=== PATIENT | male | born 1965 | race Caucasian/White ===

== ENCOUNTER 2020-06-26 13:34 | Inpatient (IN) ==
--- OUTSIDE RECORDS SUMMARY | 2020-06-26 13:37 | External Medical Summary | Continuity of Care Document ---
:1965 Author Name Srini Youssef, Provider Address Unavailable Unavailable , Care Team Providers Name Role Phone David Hardwick [email or web address] [place] DAVID HARDWICK M.D. Unavailable Unavailable Unavailable Unavailable Unavailable Assessments Assessed Problems:Vertigo, intermittentCerumen impaction Problems Cerumen impaction (380.4) (H61.20) Vertigo, intermittent (780.4) (R42) Allergies and Adverse Reactions No Known Drug Allergies (Allergy) Medications Multiple Vitamin TABS Refills: 0 Herbal Supplement Refills: 0 Procedures History of Cataract Surgery Status: Comp leted History of Hernia Repair Status: Complet ed Immunizations Immunizations not documented Family History Mother Family history of malignant neoplasm of breast (V16.3) (Z80. 3) Status: Active Father Family history of No known health problems (V49.89) (Z78.9) Status: Active Social History - Smoking Status Smoker Plan of Treatment Planned Observations Planned Goals not documented Results No Known Results Results not documented Encounters Appointment; David Hardwick M.D. 19-Apr-2018 13:00 Encounter Diagnosis: Problem not documented
--- OUTSIDE RECORDS SUMMARY | 2020-06-26 13:38 | External Medical Summary | Continuity of Care Document ---
:1965 Author Name Srini Youssef, Provider Address Unavailable Unavailable , Care Team Providers Name Role Phone David Hardwick [email or web address] [place] DAVID HARDWICK M.D. Unavailable Unavailable Unavailable Unavailable Unavailable Assessments Assessed Problems:Vertigo, intermittentCerumen impaction Problems Vertigo, intermittent (780.4) (R42) Cerumen impaction (380.4) (H61.20) Allergies and Adverse Reactions No Known Drug [...]
[2020-06-26] MEDS ORDERED: PANTOPRAZOLE BOLUS/DRIP 1 EA IV STA (14:01)
[2020-06-26] MEDS ORDERED: SODIUM CHLORIDE 0.9% 250 ML IV PRN ×3 (14:01→22:27)
--- NOTE | 2020-06-26 14:06 | Emergency Department Note ---
Impression & Plan SOB (shortness of breath), Weakness, Acute GI bleeding, Anemia ED Provider Note NAME: VIRY CATALAN AGE: 55 SEX: M : 1965 ARRIVES VIA: Walk-In INFORMANT: [Patient] ED PROVIDER(S): [Herb Valentine MD] CHIEF COMPLAINT: Abnormal labs HISTORY OF PRESENT ILLNESS: The patient is a 55-year-old male who is of the [facility] anamaria. The patient states that he has been weak and short of breath for about 4 weeks. Things are getting worse. He went to an outpatient clinic today and had lab work. He was told that he needed a blood transfusion. The patient denies any chest pain. There strauss been no fever, no cough or congestion. No known Covid exposures. He does not have any rash. The patient states that he has not kept track of his bowel movements, he is not sure if anything has been black or bloody. He does deny vomiting. The patient has been transfused with blood before, he states he is not sure why. REVIEW OF SYSTEMS: See HPI for pertinent positives and negatives. A total of ten systems were reviewed and were otherwise negative. PMHx/PSHx: See Below SOCIAL HISTORY: See Below. PHYSICAL EXAM: GENERAL: Patient is in no acute distress. Very thin and frail HEENT: No acute trauma, normocephalic atraumatic, mucous membranes dry, no nasal congestion, no scleral icterus. NECK: No stridor, no adenopathy, no meningismus, trachea is midline. LUNGS: Clear to auscultation bilaterally, no wheeze, no rhonchi, breath sounds equal. HEART: Mildly tachycardic, regular rhythm, no murmurs. ABDOMEN: Soft, nontender, bowel sounds positive, no hernias, no peritonitis. EXTREMITIES: No cyanosis or edema, full range of motion of all the joints with out pain or difficulty, no signs for acute trauma. NEUROLOGIC: Oriented x 3, no acute motor or sensory deficits, no focal weakness. SKIN: No rash, no jaundice, no diaphoresis. Pale. Rectal: Black stool, heme positive. DIFFERENTIAL DIAGNOSIS: Diverticulosis, AVM, coagulopathy, colitis, inflammatory bowel disease, malignancy, [place] tear, esophagitis, peptic ulcer disease, variceal bleed, gastritis, epistaxis, fissure, hemorrhoids, as well as other pathologies. EMERGENCY DEPARTMENT COURSE/PROCEDURES: ECG: Indication was weakness. The ECG shows a normal sinus rhythm with a rate of 98. There is no ST elevation, no PVCs. The QTc is 431. Continuous Cardiac Monitoring: An order was placed for continuous cardiac monitoring. The monitor shows a rate of 88 with normal sinus rhythm. Critical Care Note: I have personally spent 43 minutes of critical care time in the direct management of this patient. This includes bedside care, interpretation of diagnostic studies, and testing, discussion with consultants, patient, and family members, and other required patient management activities. This 43 minutes is in excess of all separately billable procedures. MEDICAL DECISION MAKING: There is no leukocytosis. The patient is quite anemic with a hemoglobin of 7. There is an elevation to the platelet count at 602. There is no coagulopathy. There is no significant electrolyte abnormality or kidney failure. ALT was slightly elevated, the bilirubin was normal. ECG showed a sinus rhythm, no acute ischemia. Cardiac enzyme testing x1 is not consistent with acute cardiac injury. No evidence for pancreatitis. Covid testing was negative. Chest film showed some emphysema and some potential pulmonary nodules, there was no CHF or pneumonia. On exam, the patient had black heme positive stool, he was pale and looked quite exhausted and washed out. The patient was given IV saline, 500 cc. He received an 80 mg IV Protonix bolus and was placed on a Protonix drip. He was ordered for 1 unit of packed red blood cells to be transfused. Patient did sign the proper consent for the red blood cell transfusion. I spoke to the patient about his findings, he understands the need for hospitalization. He likely has an upper GI bleed causing his anemia, weakness and fatigue. Malignancy is of course a concern as well. Further work-up is r equired. He will likely require an endoscopy. Patient is comfortable with admission, I did speak with case management, the on- call hospitalist has been consulted. Patient seems improved since being treated here in the ED. His blood pressure and pulse have improved. Past Med/Surg History Medical History Mandible fracture Social History Smoking Status: Never smoker Hx Alcohol Use: No Preferred Language: Ukrainian Allergies Allergies Allergy/AdvReac Type Severity Reaction Status Date / Time No Known Allergies Allergy Unverified 06/26/20 15:13 Home Meds Home Medications Medication Instructions Recorded Confirmed Live Enzymes Tab 1 tab PO DAILY PRN 06/26/20 06/26/20 Penicillin Tab 500 mg PO Q8 06/26/20 06/26/20 albuterol sulfate 1 puff INHALATION Q4 PRN 06/26/20 06/26/20 nystatin 5 ml PO QID 06/26/20 06/26/20 prednisone 0 mg PO .QID UD 06/26/20 06/26/20 Results & Data (ED) Vital Signs Vital Signs - 24 hr 06/26/20 13:37 06/26/20 14:17 06/26/20 15:10 Temperature 37.1 C Temperature Source Skin Pulse Rate 114 H Pulse Rate [Apical] 87 Pulse Rhythm Regular Pulse Strength Normal Respiratory Rate 20 18 Respiratory Effort / Characteristics Non-Labored Respiratory Depth Normal Respiratory Pattern Regular Blood Pressure 95/67 L Blood Pressure [Left Arm] 107/72 Blood Pressure Mean 76 Blood Pressure Mean [Left Arm] 83 Blood Pressure Position Sitting Pulse Oximetry 95 93 Oxygen Delivery Method Room Air Room Air Sepsis Recent Fever Within 48 Hours No Sepsis New/Unexplained Change in Mental Status N/A Sepsis Action Taken by Nursing No Action Required 06/26/20 16:26 Temperature 37.1 C Temperature Source Oral Pulse Rate 91 H Pulse Rate [Apical] Pulse Rhythm Pulse Strength Respiratory Rate 20 Respiratory Effort / Characteristics Respiratory Depth Respiratory Pattern Blood Pressure 106/53 L Blood Pressure [Left Arm] Blood Pressure Mean 70 Blood Pressure Mean [Left Arm] Blood Pressure Position Pulse Oximetry 98 Oxygen Delivery Method Sepsis Recent Fever Within 48 Hours Sepsis New/Unexplained Change in Mental Status Sepsis Action Taken by [facility] Medications Current Medication List: was personally reviewed by me Laboratory Data Attestation: I reviewed the patient's lab results. Result diagrams: 06/26/20 14:06 06/26/20 14:06 Lab Results 06/26/20 06/26/20 06/26/20 Range/Units 14:06 14:06 14:06 WBC 10.52 (4.8-10.8) K/uL RBC 2.17 L (4.7-6.1) M/uL Hgb 7.3 L (14.0-18.0) g/dL Hct 22.3 L (42-52) % MCV 102.8 H (80-100) fL MCH 33.6 (25-34) pg MCHC 32.7 (32-36) g/dL RDW Std Deviation 77.2 H (36.4-46.3) fL RDW Coeff of Paige 21.6 H (11.5-14.5) % Plt Count 602 H (130-400) K/uL MPV 8.9 (7.4-10.4) fL Immature Gran % (Auto) 0.8 % Neut % (Auto) 91.8 % Lymph % (Auto) 4.1 % [place] % (Auto) 3.2 % Eos % (Auto) 0.0 % Baso % (Auto) 0.1 % Neut # (Auto) 9.66 H (1.4-6.5) K/uL Lymph # (Auto) 0.43 L (1.2-3.4) K/uL [place] # (Auto) 0.34 (0.11-0.59) K/uL Eos # (Auto) 0.00 (0-0.5) K/uL Baso # (Auto) 0.01 (0-0.2) K/uL Immature Gran # (Auto) 0.08 H (0.00-0.02) K/uL Polychromasia 2+ Anisocytosis Present PT Cancelled INR Cancelled APTT Cancelled PTT Ratio Cancelled Sodium (136-145) mmol/L Potassium (3.5-5.1) mmol/L Chloride (98-107) mmol/L Carbon Dioxide (21-32) mmol/L Anion Gap (3-11) BUN (7-18) mg/dl Creatinine (0.6-1.4) mg/dl Est Cr Clr Drug Dosing ml/min Est GFR ( Amer) Est GFR (Non-Af Amer) BUN/Creatinine Ratio (10-20) Glucose (70-99) mg/dl Calcium (8.5-10.1) mg/dl Total Bilirubin (0.2-1) mg/dl AST (15-37) U/L ALT (12-78) U/L Alkaline Phosphatase (45-117) U/L Troponin I (0-0.045) ng/ml Total Protein (6.4-8.2) gm/dl Albumin (3.4-5.0) gm/dl Globulin (2.5-4.0) gm/dl Albumin/Globulin Ratio (0.9-2) Lipase (73-393) U/L SARS-CoV-2 Ag (Rapid) (Negative) Blood Type A Positive Blood Type Recheck Antibody Screen NEGATIVE Crossmatch See Detail 06/26/20 06/26/20 06/26/20 Range/Units 14:06 14:17 14:52 WBC (4.8-10.8) K/uL RBC (4.7-6.1) M/uL Hgb (14.0-18.0) g/dL Hct (42-52) % MCV (80-100) fL MCH (25-34) pg MCHC (32-36) g/dL RDW Std Deviation (36.4-46.3) fL RDW Coeff of Paige (11.5-14.5) % Plt Count (130-400) K/uL MPV (7.4-10.4) fL Immature Gran % (Auto) % Neut % (Auto) % Lymph % (Auto) % [place] % (Auto) % Eos % (Auto) % Baso % (Auto) % Neut # (Auto) (1.4-6.5) K/uL Lymph # (Auto) (1.2-3.4) K/uL [place] # (Auto) (0.11-0.59) K/uL Eos # (Auto) (0-0.5) K/uL Baso # (Auto) (0-0.2) K/uL Immature Gran # (Auto) (0.00-0.02) K/uL Polychromasia Anisocytosis PT 11.9 INR 1.1 APTT 25.2 PTT Ratio 0.9 Sodium 131 L (136-145) mmol/L Potassium 4.4 (3.5-5.1) mmol/L Chloride 97 L (98-107) mmol/L Carbon Dioxide 29 (21-32) mmol/L Anion Gap 5.0 (3-11) BUN 28 H (7-18) mg/dl Creatinine 0.47 L (0.6-1.4) mg/dl Est Cr Clr Drug Dosing 152.1 ml/min Est GFR ( Amer) 143.0 Est GFR (Non-Af Amer) 123.4 BUN/Creatinine Ratio 58.7 H (10-20) Glucose 118 H (70-99) mg/dl Calcium 8.2 L (8.5-10.1) mg/dl Total Bilirubin 0.4 (0.2-1) mg/dl AST 29 (15-37) U/L ALT 87 H (12-78) U/L Alkaline Phosphatase 84 (45-117) U/L Troponin I < 0.015 (0-0.045) ng/ml Total Protein 5.9 L (6.4-8.2) gm/dl Albumin 2.2 L (3.4-5.0) gm/dl Globulin 3.7 (2.5-4.0) gm/dl Albumin/Globulin Ratio 0.6 L (0.9-2) Lipase 267 (73-393) U/L SARS-CoV-2 Ag (Rapid) Negative (Negative) Blood Type Blood Type Recheck Antibody Screen Crossmatch 06/26/20 Range/Units 14:52 WBC (4.8-10.8) K/uL RBC (4.7-6.1) M/uL Hgb (14.0-18.0) g/dL Hct (42-52) % MCV (80-100) fL MCH (25-34) pg MCHC (32-36) g/dL RDW Std Deviation (36.4-46.3) fL RDW Coeff of Paige (11.5-14.5) % Plt Count (130-400) K/uL MPV (7.4-10.4) fL Immature Gran % (Auto) % Neut % (Auto) % Lymph % (Auto) % [place] % (Auto) % Eos % (Auto) % Baso % (Auto) % Neut # (Auto) (1.4-6.5) K/uL Lymph # (Auto) (1.2-3.4) K/uL [place] # (Auto) (0.11-0.59) K/uL Eos # (Auto) (0-0.5) K/uL Baso # (Auto) (0-0.2) K/uL Immature Gran # (Auto) (0.00-0.02) K/uL Polychromasia Anisocytosis PT INR APTT PTT Ratio Sodium (136-145) mmol/L Potassium (3.5-5.1) mmol/L Chloride (98-107) mmol/L Carbon Dioxide (21-32) mmol/L Anion Gap (3-11) BUN (7-18) mg/dl Creatinine (0.6-1.4) mg/dl Est Cr Clr Drug Dosing ml/min Est GFR ( Amer) Est GFR (Non-Af Amer) BUN/Creatinine Ratio (10-20) Glucose (70-99) mg/dl Calcium (8.5-10.1) mg/dl Total Bilirubin (0.2-1) mg/dl AST (15-37) U/L ALT (12-78) U/L Alkaline Phosphatase (45-117) U/L Troponin I (0-0.045) ng/ml Total Protein (6.4-8.2) gm/dl Albumin (3.4-5.0) gm/dl Globulin (2.5-4.0) gm/dl Albumin/Globulin Ratio (0.9-2) Lipase (73-393) U/L SARS-CoV-2 Ag (Rapid) (Negative) Blood Type Blood Type Recheck A Positive Antibody Screen Crossmatch Administered Medications Pantoprazole Sodium 40 mg/ (Dextrose) 100 mls @ 20 mls/hr IV Q5H CITLALI Stop: 07/26/20 14:29 Last Admin: 06/26/20 14:50 Dose: 8 mg/hr, 20 mls/hr Documented by: [id number] Discontinued Medications Sodium Chloride (Nss) 500 mls @ 999 mls/hr IV .Q31M CITLALI Stop: 06/26/20 14:45 Last Infusion: 06/26/20 14:45 Dose: 0 mls/hr Documented by: [id number] Admin: 06/26/20 14:14 Dose: 999 mls/hr Documented by: [id number] Pantoprazole Sodium 80 mg/ (Dextrose) 120 mls @ 480 mls/hr IV 1415 ONE Stop: 06/26/20 14:29 Last Infusion: 06/26/20 14:57 Dose: 0 mls/hr Documented by: [id number] Admin: 06/26/20 14:41 Dose: 480 mls/hr Documented by: [id number] Imaging Data Radiologist's Impression: SINGLE VIEW CHEST CLINICAL HISTORY: Dyspnea. FINDINGS: 2 AP, portable, upright chest radiographs are obtained. No prior studies are available for comparison at the time of dictation. The examination is degraded by portable technique and patient rotation. The cardiomediastinal silhouette is unremarkable. Enlargement of the central pulmonary arteries suggests pulmonary artery hypertension. Emphysematous change is noted. There is a 1.6 cm pulmonary nodule in the right midlung. Foci of scarring/atelectasis are seen at both lung bases, left greater than right. No large pleural effusion or Pneumothorax is seen. The skeletal structures are osteopenic. The bony thorax is grossly intact. IMPRESSION: 1. Emphysema. 2. A 1.6 cm nodular density is seen in the right midlung. Follow-up with a chest CT is recommended to assess for pulmonary neoplasm. 3. Scarring/atelectasis is seen at the lung bases, left greater than right. No airspace consolidation is identified typical for pneumonia. Discharge Plan Visit Data Chief Complaint: Abnormal Labs/Diagnostic Testing Stated Complaint: NEEDS BLOOD TRANSFUSION ED Provider: Herb Valentine Discharge Problem: SOB (shortness of breath), Weakness, Acute GI bleeding, Anemia Patient Disposition: Admitted As Inpatient Condition: Serious Forms Stand Alone Forms: [facility], Virtual Emergency Department, Important Visit Information Prescriptions Prescriptions: No Action nystatin 100,000 unit/mL Suspension 5 ml PO QID RF: 0 prednisone 10 mg Tablet 0 mg PO .QID UD RF: 0 albuterol sulfate 90 mcg/actuation Hfa Aerosol Inhaler 1 puff INHALATION Q4 PRN (Reason: Shortness Of Breath Or Wheezing) RF: 0 Live Enzymes Tab 1 tab PO DAILY PRN (Reason: ..) RF: 0 Penicillin Tab 500 mg PO Q8 RF: 0 Referrals Referrals: Johana Pruitt MD [Primary Care Provider] - Discharge Problem: Anemia Qualifiers: Anemia type: unspecified type Qualified Code(s): D64.9 - Anemia, unspecified
[2020-06-26] MEDS ORDERED: PANTOprazole 80 MG in DEXTROSE 5% 100 ML IV ONE (14:15)
[2020-06-26] MEDS ORDERED: SODIUM CHLORIDE 0.9% 500 ML IV SCH (14:15)
[2020-06-26 14:21] LABS: Basophils # (auto) 0.01 K/uL (0-0.2); Basophils % (auto) 0.1 %; Hematocrit (blood only) 22.3 % (42-52); Hemoglobin 7.3 g/dL (14.0-18.0); Immature Granulocytes # (auto) 0.08 K/uL (0.00-0.02); Immature Granulocytes % (auto) 0.8 %; Lymphocytes # (auto) 0.43 K/uL (1.2-3.4); Lymphocytes % (auto) 4.1 %; Mean Corpuscular Hemoglobin 33.6 pg (25-34); Mean Corpuscular Hgb Conc 32.7 g/dL (32-36); Mean Corpuscular Volume 102.8 fL (80-100); Mean Platelet Volume 8.9 fL (7.4-10.4); Monocytes # (auto) 0.34 K/uL (0.11-0.59); Monocytes % (auto) 3.2 %; Neutrophils # (auto) 9.66 K/uL (1.4-6.5); Neutrophils % (auto) 91.8 %; Platelet Count 602 K/uL (130-400); RDW Coefficient of Variation 21.6 % (11.5-14.5); RDW Standard Deviation 77.2 fL (36.4-46.3); Red Blood Count 2.17 M/uL (4.7-6.1); White Blood Count 10.52 K/uL (4.8-10.8)
[2020-06-26 14:39] LABS: Alanine Aminotransferase 87 U/L (12-78); Albumin Level 2.2 gm/dl (3.4-5.0); Anisocytosis Present; Aspartate Aminotransferase 29 U/L (15-37); BUN Creatinine Ratio 58.7 (10-20); Blood Urea Nitrogen 28 mg/dl (7-18); Calcium 8.2 mg/dl (8.5-10.1); Carbon Dioxide 29 mmol/L (21-32); Chloride 97 mmol/L (98-107); Creatinine Clr Calc Pharmacy 152.1 ml/min; Est GFR (Non-African American) 123.4; Glucose 118 mg/dl (70-99); Lipase 267 U/L (73-393); Polychromasia 2+; Potassium 4.4 mmol/L (3.5-5.1); Sodium 131 mmol/L (136-145)
[2020-06-26 14:43] LABS: Albumin Globulin Ratio 0.6 (0.9-2); Alkaline Phosphatase 84 U/L (45-117); Bilirubin,Total 0.4 mg/dl (0.2-1); Globulin 3.7 gm/dl (2.5-4.0); Total Protein 5.9 gm/dl (6.4-8.2); Troponin I < 0.015 ng/ml (0-0.045)
[2020-06-26] MEDS: PANTOprazole 40 MG in DEXTROSE 5% 100 ML IV SCH ×2 (14:50→20:01)
[2020-06-26 15:29] LABS: INR 1.1 (0.9-1.1); Partial Thromboplastin Ratio 0.9; Partial Thromboplastin Time 25.2 Seconds (21.0-31.0); Prothrombin Time 11.9 Seconds (9.0-12.0)
--- NOTE | 2020-06-26 15:42 | Electrocardiogram Report ---
Test Reason : Blood Pressure : / mmHG Vent. Rate : 098 BPM Atrial Rate : 098 BPM P-R Int : 150 ms QRS Dur : 088 ms QT Int : 338 ms P-R-T Axes : 087 084 078 degrees QTc Int : 431 ms Normal sinus rhythm Nonspecific ST abnormality No previous ECGs available Confirmed by Jaime Stock ([id number]) on 06/26/2020 3:41:34 PM Referred By: REFERRED SELF Confirmed By:Brian Stock
--- NOTE | 2020-06-26 15:50 | XRay Report ---
SINGLE VIEW CHEST CLINICAL HISTORY: Dyspnea. FINDINGS: 2 AP, portable, upright chest radiographs are obtained. No prior studies are available for comparison at the time of dictation. The examination is degraded by portable technique and patient ro tation. The cardiomediastinal silhouette is unremarkable. Enlargement of the central pulmonary arter ies suggests pulmonary artery hypertension. Emphysematous change is noted. There is a 1.6 cm pulmonar y nodule in the right midlung. Foci of scarring/atelectasis are seen at both lung bases, left greater than right. No large pleural effusion or Pneumothorax is seen. The skeletal structures are osteopeni c. The bony thorax is grossly intact. IMPRESSION: 1. Emphysema. 2. A 1.6 cm nodular density is seen in the right midlung. Follow-up with a chest CT is recommended to assess for pulmonary neoplasm. 3. Scarring/atelectasis is seen at the lung bases, left greater than right. No airspace consolidation is identified typical for pneumonia. ACT 112: Negative or not required by law. Electronically signed by: Herb Scott M.D. 06/26/2020 3:49 PM
--- NOTE | 2020-06-26 16:05 | History & Physical Report ---
Date of Service June 26, 2020 Assessment & Plan (1) Symptomatic anemia: Macrocytic anemia. In the setting of melena stool and fecal occult positivity. Tx 2 units PRBCs. Trend H/H. Check Fe studies, B12, folate. GI consult for consideration of endoscopic evaluation. (2) Melena: Given his extreme weight loss, severe protein calorie malnutrition, and severe failure to thrive the melena is concerning for GI occult malignancy. NPO. Tx 2 units PRBCs. IV PPI drip. GI consult with Dr Zapien requested for consideration of endoscopic evaluation. Check Fe studies. Serial H/H's. (3) SOB (shortness of breath): Could be multifactorial - severe anemia, occult malignancy, PE, pulmonary infection, etc. Tx 2 units PRBCs. In light of weight loss, abnormal cxr, etc - obtain CTA chest PE protocol. r/o PE. r/o tumor. r/o atypical infection. (4) Severe protein-calorie malnutrition: 40+ pounds of weight loss in 4-6 weeks? profound weight loss leading to bed-bound status. occult malignancy is top of differential. (5) Abnormal AST and ALT: CT abd/pelvis should potentially shed light on any liver abnormalities. (6) Hyponatremia: Appears volume depleted. Isotonic fluids. BMP am. (7) Pulmonary nodule 1 cm or greater in diameter: Highly concerning for primary lung cancer vs metastatic disease vs other. CT chest for more information. (8) Weight loss: Check TSH in addition CT chest/abd/pelvis and GI consultation. Await above testing. Highly concerning for occult malignancy. 40+ pounds per . (9) Encephalopathy acute: Consider head CT especially if cancerous process is found. Would need to be checked for intra-cranial mets. Check ammonia level. Low Na could contribute to mental status. (10) Thrombocytosis: 2nd Fe deficiency ? check iron studies. reactive ? other ? serial CBC. (11) DVT prophylaxis: chemical means contraindicated in setting of acute GI bleeding SCDs only extensively updated at bedside History of Present Illness Primary Care Provider: Johana Pruitt MD 55yo male with no known PMH presents with 1 month of feeling unwell. Patient's was at bedside and provided most of the history as patient was confused and could not remember most historical details. About 1 month ago the patient was seen at a local urgent care for his symptoms. At that time he had cough, fatigue, ?fever, and poor appetite. Was placed on antibiotics and steroids for presumed pneumonia. He was tested for COVID and apparently this was negative. He was also told he may have thrush and was placed on nystatin. Despite the above steroids & antibiotics he never felt better. Cough has persisted, fatigue has persisted, etc. Has lost a considerable amount of weight over the last 2 months. Amount is about 35-40 pounds. Has had severe anorexia, early satiety, extreme fatigue, and dark black stools. The latter symptom was first seen last week. The dark stools was associated with constipation which is chronic per his . No abdominal pain. Has had subjective fevers and chills. mentioned one temperature of about 100 degrees. Mr Dudley has also been confused. specifically mentions him having co nfusion last weekend. He admits to "not having his memory recently". Could not tell me the day of the week during my assessment. 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 For the last week he has essentially been in the bed. Allergies Allergy/AdvReac Type Severity Reaction Status Date / Time No Known Allergies Allergy Unverified 06/26/20 15:13 Home Medications Medication Instructions Recorded Confirmed Type Live Enzymes Tab 1 tab PO DAILY PRN 06/26/20 06/26/20 History Penicillin Tab 500 mg PO Q8 06/26/20 06/26/20 History albuterol sulfate 1 puff INHALATION Q4 PRN 06/26/20 06/26/20 History nystatin 5 ml PO QID 06/26/20 06/26/20 History prednisone 0 mg PO .QID UD 06/26/20 06/26/20 History Past Med/Surg History Medical History Mandible fracture Surgical History (Updated 06/27/20 @ 05:03 by Alex Alvarado) No history of previous surgery Family History (Updated 06/27/20 @ 05:04 by Alex Alvarado) Mother Breast cancer Denies family history of Colorectal cancer Social History (Updated 06/27/20 @ 05:08 by Alex Alvarado) Smoking Status: Never smoker Cigarettes Per Day: Pt denied smoking to me, but told ER physician he smoked daily; Hx Alcohol Use: No Hx Substance Use: No Preferred Language: Armenian Communication Ability: Effective Safety Associate Required: No Beliefs That Will Affect Care: None and Cultural marital status: Current Living Situation: Family Current Living Situation Comment: Yobany with /children current occupation: [employer] How many Children do You have: 10 Assistive Devices: None Review of Systems Constitutional: + fever, + chills, + fatigue, + weakness, + anorexia and + weight loss (40 pounds); no body aches Eyes: no worsening vision Ear, Nose, Mouth, Throat: + mouth lesions and + sore throat; no nasal congestion Respiratory: + cough and + dyspnea on exertion Cardiovascular: no chest pain and no edema Gastrointestinal: + early satiety, + constipation and + melena; no abdominal pain, no nausea and no vomiting Genitourinary: no dysuria Musculoskeletal: no body aches Integumentary: no rash Neurologic: + generalized weakness Psychiatric: no depression Endocrine: no prior h/o DM Hematologic / Lymphatic: + easy bruising; no lymphadenopathy and no night sweats Physical Exam Constitutional: + ill appearing, + cachectic, + altered mental status and + frail appearing very pale Eyes: + anicteric sclerae and PERRL ENMT: Mouth: + oral mucosal abnormality (Ulceration posterior palate ), + dry oral mucous membranes and + poor dentition Neck: trachea midline, no thyromegaly Respiratory: no respiratory distress Auscultation: + crackles (Scattered bases ) Cardiovascular: Rate/Rhythm: regular rate and regular rhythm Heart Sounds: normal S1 and normal S2; no murmur Vessels: posterior tibial pulses present and dorsalis pedis pulses present; no JVD Extremities: no edema Gastrointestinal (Abdomen): normal bowel sounds, soft, nontender, no hepatosplenomegaly rectal - performed by ER physician -- gross melena, heme+ stool, no mass Musculoskeletal: Extremities: + clubbing Skin: no rashes, warm and dry + pallor; no rashes Neurologic: deep tendon reflexes 2+ bilaterally, moves all extremities and + confused Psychiatric: Orientation: oriented to person and oriented to place; + not oriented to time Lymphatic: no cervical lymphadenopathy and no subclavicular lymphadenopathy Results & Data Results & Data ([facility]) Vital Signs (Past 12 Hours) Vital Signs Temp Pulse Pulse Resp BP BP Pulse Ox 06/26/20 15:10 87 18 107/72 06/26/20 14:17 93 06/26/20 13:37 37.1 C 114 H 20 95/67 L 95 Laboratory Results Laboratory Results - last 24 hr 06/26/20 06/26/20 06/26/20 14:06 14:06 14:06 WBC 10.52 RBC 2.17 L Hgb 7.3 L Hct 22.3 L MCV 102.8 H MCH 33.6 MCHC 32.7 RDW Std Deviation 77.2 H RDW Coeff of Paige 21.6 H Plt Count 602 H MPV 8.9 Immature Gran % (Auto) 0.8 Neut % (Auto) 91.8 Lymph % (Auto) 4.1 Crawford % (Auto) 3.2 Eos % (Auto) 0.0 Baso % (Auto) 0.1 Neut # (Auto) 9.66 H Lymph # (Auto) 0.43 L Crawford # (Auto) 0.34 Eos # (Auto) 0.00 Baso # (Auto) 0.01 Immature Gran # (Auto) 0.08 H Polychromasia 2+ Anisocytosis Present PT Cancelled INR Cancelled APTT Cancelled PTT Ratio Cancelled Sodium Potassium Chloride Carbon Dioxide Anion Gap BUN Creatinine Est Cr Clr Drug Dosing Est GFR ( Amer) Est GFR (Non-Af Amer) BUN/Creatinine Ratio Glucose Calcium Iron Transferrin Transferrin % Sat Ferritin Total Bilirubin AST ALT Alkaline Phosphatase Ammonia Troponin I Total Protein Albumin Globulin Albumin/Globulin Ratio Lipase Vitamin B12 Folate Nasal Screen MRSA (PCR) SARS-CoV-2 Ag (Rapid) Blood Type A Positive Blood Type Recheck Antibody Screen NEGATIVE Crossmatch See Detail 06/26/20 06/26/20 06/26/20 14:06 14:06 14:17 WBC RBC Hgb Hct MCV MCH MCHC RDW Std Deviation RDW Coeff of Paige Plt Count MPV Immature Gran % (Auto) Neut % (Auto) Lymph % (Auto) Crawford % (Auto) Eos % (Auto) Baso % (Auto) Neut # (Auto) Lymph # (Auto) Crawford # (Auto) Eos # (Auto) Baso # (Auto) Immature Gran # (Auto) Polychromasia Anisocytosis PT INR APTT PTT Ratio Sodium 131 L Potassium 4.4 Chloride 97 L Carbon Dioxide 29 Anion Gap 5.0 BUN 28 H Creatinine 0.47 L Est Cr Clr Drug Dosing 152.1 Est GFR ( Amer) 143.0 Est GFR (Non-Af Amer) 123.4 BUN/Creatinine Ratio 58.7 H Glucose 118 H Calcium 8.2 L Iron 54 Transferrin 167 L Transferrin % Sat 23 Ferritin 703.0 H Total Bilirubin 0.4 AST 29 ALT 87 H Alkaline Phosphatase 84 Ammonia Troponin I < 0.015 Total Protein 5.9 L Albumin 2.2 L Globulin 3.7 Albumin/Globulin Ratio 0.6 L Lipase 267 Vitamin B12 Folate Nasal Screen MRSA (PCR) SARS-CoV-2 Ag (Rapid) Negative Blood Type Blood Type Recheck Antibody Screen Crossmatch 06/26/20 06/26/20 06/26/20 14:52 14:52 18:29 WBC RBC Hgb Hct MCV MCH MCHC RDW Std Deviation RDW Coeff of Paige Plt Count MPV Immature Gran % (Auto) Neut % (Auto) Lymph % (Auto) Crawford % (Auto) Eos % (Auto) Baso % (Auto) Neut # (Auto) Lymph # (Auto) Crawford # (Auto) Eos # (Auto) Baso # (Auto) Immature Gran # (Auto) Polychromasia Anisocytosis PT 11.9 INR 1.1 APTT 25.2 PTT Ratio 0.9 Sodium Potassium Chloride Carbon Dioxide Anion Gap BUN Creatinine Est Cr Clr Drug Dosing Est GFR ( Amer) Est GFR (Non-Af Amer) BUN/Creatinine Ratio Glucose Calcium Iron Transferrin Transferrin % Sat Ferritin Total Bilirubin AST ALT Alkaline Phosphatase Ammonia Troponin I Total Protein Albumin Globulin Albumin/Globulin Ratio Lipase Vitamin B12 Folate Nasal Screen MRSA (PCR) Negative SARS-CoV-2 Ag (Rapid) Blood Type Blood Type Recheck A Positive Antibody Screen Crossmatch 06/26/20 06/26/20 06/26/20 21:44 21:44 21:44 WBC RBC Hgb 7.9 L Hct MCV MCH MCHC RDW Std Deviation RDW Coeff of Paige Plt Count MPV Immature Gran % (Auto) Neut % (Auto) Lymph % (Auto) Crawford % (Auto) Eos % (Auto) Baso % (Auto) Neut # (Auto) Lymph # (Auto) Crawford # (Auto) Eos # (Auto) Baso # (Auto) Immature Gran # (Auto) Polychromasia Anisocytosis PT INR APTT PTT Ratio Sodium Potassium Chloride Carbon Dioxide Anion Gap BUN Creatinine Est Cr Clr Drug Dosing Est GFR ( Amer) Est GFR (Non-Af Amer) BUN/Creatinine Ratio Glucose Calcium Iron Transferrin Transferrin % Sat Ferritin Total Bilirubin AST ALT Alkaline Phosphatase Ammonia 26.4 Troponin I Total Protein Albumin Globulin Albumin/Globulin Ratio Lipase Vitamin B12 > 2000 H Folate 12.60 Nasal Screen MRSA (PCR) SARS-CoV-2 Ag (Rapid) Blood Type Blood Type Recheck Antibody Screen Crossmatch Diagnostic Findings 1. chest x-ray: IMPRESSION: 1. Emphysema. 2. A 1.6 cm nodular density is seen in the right midlung. Follow-up with a chest CT is recommended to assess for pulmonary neoplasm. 3. Scarring/atelectasis is seen at the lung bases, left greater than right. No airspace consolidation is identified typical for pneumonia. 2. EKG - my read: NSR, no ST changes Code Status & VTE Plan Code Status DNR/DNI - discussed code status in presence of his ("when it's my time to go it's time to go") VTE Prophylaxis Plan VTE Prophylaxis will be ordered: Yes PG Care Time/CCT Total # of Minutes Spent Total Time Spent with Patient: Total time spent is greater than 50% in coord ination of care (as documented) at patient's floor/unit and/or counseling patient: Coding Level of Care Code 64477 Initial Inpt Care Lvl 2 Diagnoses Symptomatic anemia D64.9 Melena K92.1 SOB (shortness of breath) R06.02 Severe protein-calorie malnutrition E43 Abnormal AST and ALT R74.8 Hyponatremia E87.1 Pulmonary nodule 1 cm or greater in diameter R91.1 Weight loss R63.4 Encephalopathy acute G93.40 Thrombocytosis D47.3 DVT prophylaxis Z29.9
[2020-06-26] MEDS ORDERED: ONDANSETRON INJ 2 MG/ML 2 ML VIAL IV PRN (18:10)
[2020-06-26] MEDS: D5NSS + 20MEQ KCL 20 MEQ/1,000 ML BAG IV SCH (21:07)
[2020-06-26] MEDS: NYSTATIN SUSP 500,000 U/5 ML UDC PO SCH ×2 (21:07→21:08)
[2020-06-26 22:41] LABS: Vitamin B12 > 2000 pg/ml (193-986)
[2020-06-27] MEDS: PANTOprazole 40 MG in DEXTROSE 5% 100 ML IV SCH ×5 (00:59→20:44)
[2020-06-27 06:02] LABS: Hematocrit (blood only) 26.9 % (42-52); Hemoglobin 8.9 g/dL (14.0-18.0); Mean Corpuscular Hemoglobin 32.5 pg (25-34); Mean Corpuscular Hgb Conc 33.1 g/dL (32-36); Mean Corpuscular Volume 98.2 fL (80-100); Mean Platelet Volume 9.2 fL (7.4-10.4); Platelet Count 471 K/uL (130-400); RDW Coefficient of Variation 20.6 % (11.5-14.5); Red Blood Count 2.74 M/uL (4.7-6.1); White Blood Count 10.07 K/uL (4.8-10.8)
[2020-06-27 06:25] LABS: BUN Creatinine Ratio 56.4 (10-20); Calcium 7.3 mg/dl (8.5-10.1); Creatinine Clr Calc Pharmacy 170.2 ml/min; Est GFR (African American) 149.8; Est GFR (Non-African American) 129.2; Potassium 4.1 mmol/L (3.5-5.1)
[2020-06-27 06:36] LABS: Thyroid Stimulating Hormone 2.4 uIu/ml (0.300-4.500)
[2020-06-27] MEDS: NYSTATIN SUSP 500,000 U/5 ML UDC PO SCH ×4 (08:26→20:44)
[2020-06-27] MEDS: D5NSS + 20MEQ KCL 20 MEQ/1,000 ML BAG IV SCH ×2 (08:27→20:44)
[2020-06-27] MEDS ORDERED: OPTIRAY 320 125ml IV ONE (09:04)
--- NOTE | 2020-06-27 09:50 | CT Scan Report ---
CT abd pelvis IV con only CLINICAL HISTORY: 40# weight loss, early satiety; intra-abd path? COMPARISON STUDY: None. TECHNIQUE: Patient was scanned in a dynamic helical fashion during intravenous administration of 119 cc of Optiray 320 A dose lowering technique was utilized adhering to the principles of ALARA. CT DOSE: 567.72 mGy.cm FINDINGS: Lower chest: There is lower lobe bronchial wall thickening and mucous plugging. There are peripheral airspace opacities within the lingula and right middle lobe. Liver: The contrast-enhanced liver is normal in size, contour, and attenuation. There is no intrahepa tic biliary ductal dilatation. The hepatic veins and portal veins are patent. Gallbladder: Unremarkable. Spleen: Normal in size and attenuation. Pancreas: Unremarkable. Adrenal glands: Unremarkable. Kidneys: Subcentimeter renal hypodensities, likely represent cysts Bowel: There are no transition zones to indicate bowel obstruction. There is no evidence of acute div erticulitis. There is moderate stool within the rectum. There is no evidence of acute diverticulitis. Bowel evaluation is limited given the lack of orally administered contrast, and the paucity of intra -abdominal fat Peritoneum: There is no intraperitoneal free air or abdominal ascites. Vasculature: The abdominal aorta is normal in course and caliber. Adenopathy: None. Pelvic viscera: The bladder, and pelvic viscera are unremarkable. Skeletal structures: There is a grade 1-2/4 spondylolisthesis of L5 on S1. There is bilateral L5 spon dylolysis. There is discogenic and plate sclerosis at the L1-2 level. IMPRESSION: 1. No evidence of bowel obstruction. No evidence of free air 2. No acute inflammatory changes within the abdomen or pelvis. 3. Bilateral lower lobe bronchial wall thickening and mucous plugging. Peripheral airspace opacities within the lingula and right middle lobe. Bilateral dependent lower lobe opacities ACT 112: Negative or not required by law. Electronically signed by: Minh العلي M.D. 06/27/2020 9:48 AM
--- NOTE | 2020-06-27 10:22 | Gastrointestinal Consultation ---
Date of Consultation June 27, 2020 Assessment & Plan (1) Weight loss: (2) Anemia: -Clear liquids today -Keep NPO after midnight -Bowel prep ordered for colonoscopy & EGD to be performed on 06/28/2020 -Continue to monitor H/H & monitor for clinical signs and symptoms of GI bleeding -Continue Protonix 40 mg BID Present on Admission?: Yes Supervising Physician Co-Signing Physician Notes Agree with AUDI Mcdonnell Abd: Soft, NT, ND, +BS Continue supportive care Bowel prep tonight, clear liquid diet until completion of bowel prep Proceed with EGD and colonoscopy in AM History of Present Illness Reason for Consultation: Weight loss, anemia Attending Physician: Filiberto Turner History of Present Illness Patient is a 55 yo male who presents to the hospital with weakness and 40 lb subjective weight loss. He is accompanied by his . She reports that he has had constipation lately and has not been able to move his bowels for 7 days prior to hospitalization. They note he has had progressive weight loss over recent months. He denies any abdominal pain at present. An abdominal CT was performed in the ED without contrast and does not show any grossly remarkable lesions or masses. The patient's current H/H is 8.9/26.9. Baseline unknown. No NSAID use is reported. Patient feels weak and tired. No known family history of GI issues. Allergies Allergy/AdvReac Type Severity Reaction Status Date / Time No Known Allergies Allergy Unverified 06/26/20 15:13 Home Medications Medication Instructions Recorded Confirmed Type Live Enzymes Tab 1 tab PO DAILY PRN 06/26/20 06/26/20 History Penicillin Tab 500 mg PO Q8 06/26/20 06/26/20 History albuterol sulfate 1 puff INHALATION Q4 PRN 06/26/20 06/26/20 History nystatin 5 ml PO QID 06/26/20 06/26/20 History prednisone 0 mg PO .QID UD 06/26/20 06/26/20 History Patient History Medical History Mandible fracture Surgical History (Updated 06/27/20 @ 05:03 by Alex Alvarado) No history of previous surgery Family History (Updated 06/27/20 @ 05:04 by Alex Alvarado) Mother Breast cancer Denies family history of Colorectal cancer Social History (Updated 06/27/20 @ 05:08 by Alex Alvarado) Smoking Status: Never smoker Cigarettes Per Day: Pt denied smoking to me, but told ER physician he smoked daily; Hx Alcohol Use: No Hx Substance Use: No Preferred Language: Faroese Communication Ability: Effective Automotive Buyer Required: No Beliefs That Will Affect Care: None and Cultural marital status: Current Living Situation: Family Current Living Situation Comment: Yobany with /children current occupation: [employer] How many Children do You have: 10 Assistive Devices: None Review of Systems Constitutional: + weight loss Eyes: no problem reported Ear, Nose, Mouth, Throat: no problem reported Respiratory: + dyspnea on exertion Cardiovascular: no chest pain Gastrointestinal: + change in bowel habits and + constipation; no abdominal pain, no heartburn, no vomiting, no coffee ground emesis and no hematemesis Musculoskeletal: no problem reported Integumentary: no rash Psychiatric: no problem reported Hematologic / Lymphatic: + unexplained weight loss Physical Exam Constitutional: well developed and well nourished Eyes: no conjunctival abnormality ENMT: Ears: no hearing impairment Neck: normal visual inspection Respiratory: normal respiratory effort Cardiovascular: Extremities: no edema Gastrointestinal (Abdomen): normal bowel sounds, soft, nontender, no hepatosplenomegaly Musculoskeletal: Head/Neck/Chest: normocephalic Skin: no rashes Psychiatric: A+Ox3, euthymic affect Results & Data ([facility]) Vital Signs (Past 12 Hours) Vital Signs Temp Pulse Pulse Resp BP BP Pulse Ox 06/27/20 08:09 36.8 C 82 18 114/71 95 06/27/20 01:00 92 H 15 91 06/27/20 00:45 77 18 93 06/27/20 00:30 73 15 94 06/27/20 00:15 75 17 91 06/27/20 00:07 78 17 110/65 94 06/27/20 00:01 77 17 93 06/26/20 23:58 81 14 106/65 94 06/26/20 23:40 37.0 C 75 18 106/65 93 PG Care Time/CCT Total # of Minutes Spent Total Time Spent with Patient: Total time spent is greater than 50% in coordination of care (as documented) at patient's floor/unit and/or counseling patient: Coding Level of Care Code 58705 Office/OBS Consult Lvl 4 Diagnoses Weight loss R63.4 Anemia D64.9 Anemia type: unspecified type (1) Anemia Anemia type: unspecified type Qualified Code(s): D64.9 - Anemia, unspecified
--- NOTE | 2020-06-27 11:06 | CT Scan Report ---
CT angio chest PE protocol HISTORY: 55 years-old Male with Cough, dyspnea, pulm nodule; eval nodule; eval PE. Acute cough. TECHNIQUE: Multiple CTA images of the chest were obtained after the intravenous administration of 119 ml Optiray 320. Coronal and sagittal MIPS were obtained from the axial data set and were submitted for review. All measurements were obtained according to NASCET criteria. A dose lowering technique w as utilized adhering to the principles of ALARA. COMPARISON: CT abdomen and pelvis of same day FINDINGS: CTA: Heart is upper limits of normal in size. Mild to moderate coronary artery calcifications. No thoracic aortic aneurysm or dissection. There is patency of the imaged great vessels. The subsegmental branch es of the pulmonary arterial tree is suboptimally evaluated secondary to contrast bolus timing. There are several small subsegmental filling defects within the pulmonary arteries at the level of the dep endent lower lobes (for example see image 58 series 4, image 40 series 4 and image 52 series 4). No e vidence of right heart strain. CT CHEST: Unremarkable thyroid. Scattered calcified mediastinal and hilar lymph nodes compatible with prior gra nulomatous disease. Mildly enlarged right hilar lymph node measures up to 11 mm. Bibasilar groundglas s and consolidative opacities are most pronounced dependently. Subpleural groundglass opacities are a lso noted within the mid and lower lung zones. Bibasilar mucous plugging with bronchial wall thickeni ng. Moderate emphysema. 1.7 x 1.4 x 1.6 cm irregular spiculated nodule of the right upper lobe, image 173 series 4. 9 mm irregular nodule of the right upper lobe adjacent to the major fissure on image 1 13 series 4. 0.7 cm subpleural consolidative opacity of the left upper lobe on image 256 series 4. 5 mm solid nodule of the lingula, image 153 series 4. Nodular consolidative opacities of the lingula ar e noted including a 1.3 cm density on image 78 series 4. No acute process of the imaged upper abdomen. Soft tissues are unremarkable. Bones appear intact. No acute fracture or suspicious bone lesion. IMPRESSION: 1. Several small subsegmental pulmonary emboli within the bilateral lower lobes as above. 2. Moderate emphysema with bronchitis and bibasilar predominant mucus plugging. 3. Patchy bibasilar predominate groundglass and alveolar opacities are suggestive of a multifocal pne umonia. Follow-up imaging to document resolution is recommended. 4. There are two suspicious irregular pulmonary nodules of the right upper lobe measuring up to 1.7 c m. Follow-up is needed to exclude pulmonary malignancy. 5. Nonspecific mild right hilar adenopathy. Please refer to below summary of Fleischner criteria recommendations for follow-up of incidental CT n odules (Franchesca Avelar, Guidelines for management of small pulmonary nodules detected on CT scans: A sta tement from the Fleischner Society, Radiology 237: [phone].) SOLID NODULES Multiple nodules size: <6 mm * Low risk patients: no routine follow-up * high risk patients: optional CT at 12 months Multiple nodules size: 6-8 mm * Low risk patients: follow-up at 3-6 months, then consider further follow-up at 18-24 months * high risk patients: follow-up at 3-6 months, then at 18-24 months if no change Multiple nodules size: >8 mm * Low risk patients: follow-up at 3-6 months, then consider further follow-up at 18-24 months * high risk patients: follow-up at 3-6 months, then at 18-24 months if no change Note: newly detected indeterminate nodule in persons 35 years of age or older. * Low risk patients: minimal or absent history of smoking and/or other known risk factors * high risk patients: history of smoking or of other known risk factors (e.g. first degree relative with lung cancer, or exposure to asbestos, radon, uranium) * if a nodule up to 8 mm is partly solid or is ground glass further follow-up is required after 24 m onths to exclude possible slow growing adenocarcinoma (JOSEFA) ACT 112: Negative or not required by law. The above report was generated using voice recognition software. It may contain grammatical, syntax o r spelling errors. Electronically signed by: Alejandro Bey M.D. 06/27/2020 11:04 AM
--- NOTE | 2020-06-27 11:17 | Hospitalist Progress Note ---
Date of Service June 27, 2020 Assessment & Plan (1) Symptomatic anemia: Macrocytic anemia. In the setting of melena stool and fecal occult positivity. Tx 2 units PRBCs. Hemoglobin has improved from 7.3 to 8.9 vital signs have been stable. will continue to monitor patient. Patient will have planned colonscopy and endoscopy on 06/28 Appreciate input from GI. (2) Melena: Given his extreme weight loss, severe protein calorie malnutrition, and s evere failure to thrive the melena is concerning for GI occult malignancy. As stated above. (3) SOB (shortness of breath): Could be multifactorial - severe anemia, occult malignancy, PE, pulmonary infection, etc. Tx 2 units PRBCs. In light of weight loss, abnormal cxr, etc - obtain CTA chest PE protocol. CTA chest showing pulmonary emboli. Given anemia and recent episode of gi bleed. Anticoagulation will be held especially given how patient is possibly asymptomatic. His symptoms of shortness of breath could be explained by his anemia. Currently his vitals are stable. Patient also has a lung nodule on CTA chest. will consult pulmonary. (4) Severe protein-calorie malnutrition: 40+ pounds of weight loss in 4-6 weeks? profound weight loss leading to bed-bound status. occult malignancy is top of differential. (5) Abnormal AST and ALT: CT abd/pelvis should potentially shed light on any liver abnormalities. (6) Hyponatremia: Appears volume depleted. Isotonic fluids. sodium improved. (7) Pulmonary nodule 1 cm or greater in diameter: Highly concerning for primary lung cancer vs metastatic disease vs other. As above. (8) Weight loss: Check TSH in addition CT chest/abd/pelvis and GI consultation. Await above testing. Highly concerning for occult malignancy. 40+ pounds per . (9) Encephalopathy acute: Consider head CT especially if cancerous process is found. Would need to be checked for intra-cranial mets. Check ammonia level. Low Na could contribute to mental status. (10) Thrombocytosis: 2nd Fe deficiency ? check iron studies. reactive ? other ? serial CBC. (11) DVT prophylaxis: chemical means contraindicated in setting of acute GI bleeding SCDs only (12) Pulmonary emboli: This is a difficult situation as patient has likely malignancy evidence of pulmonary emboli but recent GI bleed. Given that patient is currently stable on room air, and not tachycardic will consult pulmonary for further input. Admission and Anticipated Discharge Date Admission Date: June 26, 2020 Subjective Patient reports feeling well. Patient has no new symptoms today. He reports he is waiting for the endoscopy to be done tomorrow. Review of Systems Review of Systems: All systems reviewed & are unremarkable except as noted in HPI & below Physical Exam Physical Exam: Constitutional: Lying in bed, comfortable, in no acute distress Eyes: PERRL ENMT: Mouth: + oral mucosal abnormality (Ulceration posterior palate ), + poor dentition Neck: trachea midline, no thyromegaly Respiratory: no respiratory distress Auscultation: CTA B/L Cardiovascular: Rate/Rhythm: regular rate and regular rhythm Heart Sounds: normal S1 and normal S2; no murmur Vessels: posterior tibial pulses present and dorsalis pedis pulses present; no JVD Extremities: no edema Gastrointestinal (Abdomen): normal bowel sounds, soft, nontender, no hepatosplenomegaly Musculoskeletal: Extremities: + clubbing Skin: no rashes, warm and dry + pallor; no rashes Neurologic: deep tendon reflexes 2+ bilaterally, moves all extremities and + confused Psychiatric: Orientation: oriented to person and oriented to place; + not oriented to time Lymphatic: no cervical lymphadenopathy and no subclavicular lymphadenopathy Results & Data Results & Data ([facility]) Vital Signs (Past 12 Hours) Vital Signs Temp Pulse Pulse Resp BP BP Pulse Ox 06/27/20 08:09 36.8 C 82 18 114/71 95 06/27/20 01:00 92 H 15 91 06/27/20 00:45 77 18 93 06/27/20 00:30 73 15 94 06/27/20 00:15 75 17 91 06/27/20 00:07 78 17 110/65 94 06/27/20 00:01 77 17 93 06/26/20 23:58 81 14 106/65 94 06/26/20 23:40 37.0 C 75 18 106/65 93 PG Care Time/CCT Total # of Minutes Spent Total Time Spent with Patient: Total time spent is greater than 50% in coordination of care (as documented) at patient's floor/unit and/or counseling patient: Coding Level of Care Code 27349 Subseq Hosp Care Lvl 3 Diagnoses Symptomatic anemia D64.9 Melena K92.1 SOB (shortness of breath) R06.02 Severe protein-calorie malnutrition E43 Abnormal AST and ALT R74.8 Hyponatremia E87.1 Pulmonary nodule 1 cm or greater in diameter R91.1 Weight loss R63.4 Encephalopathy acute G93.40 Thrombocytosis D47.3 DVT prophylaxis Z29.9 Pulmonary emboli I26.99
[2020-06-27] MEDS: LAVAGE SOLUTION 4000ML PO SCH (18:08)
[2020-06-27 23:06] LABS: Hematocrit (blood only) 28.1 % (42-52); Hemoglobin 9.3 g/dL (14.0-18.0)
[2020-06-28] MEDS: PANTOprazole 40 MG in DEXTROSE 5% 100 ML IV SCH ×3 (02:24→12:23)
[2020-06-28] MEDS: LAVAGE SOLUTION 4000ML PO SCH (03:18)
[2020-06-28 05:39] LABS: Basophils # (auto) 0.01 K/uL (0-0.2); Basophils % (auto) 0.1 %; Eosinophils # (auto) 0.07 K/uL (0-0.5); Eosinophils % (auto) 0.5 %; Hematocrit (blood only) 31.7 % (42-52); Hemoglobin 10.4 g/dL (14.0-18.0); Immature Granulocytes # (auto) 0.05 K/uL (0.00-0.02); Immature Granulocytes % (auto) 0.3 %; Lymphocytes # (auto) 0.99 K/uL (1.2-3.4); Lymphocytes % (auto) 6.9 %; Mean Corpuscular Hemoglobin 32.3 pg (25-34); Mean Corpuscular Hgb Conc 32.8 g/dL (32-36); Mean Corpuscular Volume 98.4 fL (80-100); Mean Platelet Volume 8.9 fL (7.4-10.4); Monocytes # (auto) 0.48 K/uL (0.11-0.59); Monocytes % (auto) 3.4 %; Neutrophils # (auto) 12.72 K/uL (1.4-6.5); Neutrophils % (auto) 88.8 %; Platelet Count 415 K/uL (130-400); RDW Coefficient of Variation 20.1 % (11.5-14.5); RDW Standard Deviation 70.7 fL (36.4-46.3); Red Blood Count 3.22 M/uL (4.7-6.1); White Blood Count 14.32 K/uL (4.8-10.8)
[2020-06-28 06:04] LABS: Albumin Globulin Ratio 0.6 (0.9-2); Albumin Level 2.1 gm/dl (3.4-5.0); Anisocytosis Present; BUN Creatinine Ratio 41.3 (10-20); Bilirubin,Total 0.7 mg/dl (0.2-1); Calcium 7.6 mg/dl (8.5-10.1); Creatinine Clr Calc Pharmacy 159.2 ml/min; Echinocytes 1+; Est GFR (African American) 148.3; Globulin 3.5 gm/dl (2.5-4.0); Potassium 3.8 mmol/L (3.5-5.1); Total Protein 5.6 gm/dl (6.4-8.2)
[2020-06-28] MEDS: NYSTATIN SUSP 500,000 U/5 ML UDC PO SCH ×4 (08:36→22:04)
[2020-06-28] MEDS: D5NSS + 20MEQ KCL 20 MEQ/1,000 ML BAG IV SCH ×2 (08:36→22:03)
--- NOTE | 2020-06-28 09:52 | History & Physical Bridge Note ---
Date of Service June 28, 2020 History & Physical Bridge Note I have examined the patient, reviewed the History & Physical and in the interval since the performance of the History & Physical I have noted the following changes of clinical significance: no changes noted Patient has completed the bowel prep. Of note, since my visit on 06/27/30, his CT resulted indicating bilateral pulmonary emboli. Patient appears in no acute respiratory distress at present. Will have anesthesia eval prior to EGD/colonoscopy. Supervising Physician Co-Signing Physician Notes Agree with AUDI Torres Abd: Soft, NT, ND, +BS Continue current therapy and supportive care Proceed with EGD and colonoscopy now.
--- NOTE | 2020-06-28 10:57 | Pulmonary Consultation ---
Date of Consultation June 28, 2020 Assessment & Plan (1) Pulmonary nodule 1 cm or greater in diameter: 55 yo M admitted for symptomatic anemia secondary to likely GIB. Pulm consult placed for presence of lung nodules and pulmonary emboli. 1) Pulmonary Nodules concerning for malignancy - extensive smoking history - 1.7 x 14 x1.6 cm irregular spiculated nodule of right upper lobe, 9 mm irregular nodule of right upper lobe adjacent to major fissure, 5 mm solid nodule of the lingula - Enlarged hilar lymph node up to 11 mm. - possible small cell lung cancer given recent hyponatremia, less likely given improvement in sodium with fluids 2) Pulmonary Emboli - multiple small subsegmental pulmonary emboli in bilateral lower lobes - no hx DVT/PE - underlying cancer would increase risk of being hypercoaguable - will hold off on anticoagulation until EGD/Colonoscopy to limit chance of w orsened bleeding - noted thrombocytosis of 602, macrocytic anemia with MCV of 102, hg 7.3 on admission 3) Mucus plugging vs. multifocal pneumonia? - noted on CTA chest - afebrile, no increased O2 requirement - WBC increased to 14.32 from 10.07 - will continue to monitor symptoms, more likely mucus plugging causing decreased flow to the opacified sections (2) Severe protein-calorie malnutrition: (3) Pulmonary emboli: (4) Acute GI bleeding: (5) Anemia: Anemia type: unspecified type Qualified Code(s): D64.9 - Anemia, unspecified Supervising Physician Co-Signing Physician Notes Dr. Walton was the resident-physician during care of patient. I separately evaluated patient for caballero portions of the history and the exam. I was present during the critical portion of medical decision making, and I discussed the case with the resident. I generally agree with the findings and plan except for any additions/exceptions noted. Patient with right upper lobe lung nodule concerning for possible malignancy. He has an extensive smoking history. He underwent an EGD and colonoscopy today. Very significant erosive gastritis was seen per the silver miner blasting. Will await biopsy results from the EGD. He will need a PET scan as an outpatient given his weight loss, smoking history and size of lung nodules. Based on the PET scan results and the biopsy results from the EGD, we will decide upon the next best step in terms of evaluating the right upper lobe lung lesions. I strongly recommend complete smoking cessation. Pulmonary function testing as an outpatient would be beneficial. With regards to anticoagulation, he is at high risk for recurrent PE especially in light of his potential malignancy. Recommend starting anticoagulation based on gastroenterology recommendations. Pulmonary will sign off at this time. Please call with questions. History of Present Illness Attending Physician: Gilberto Lopez MD History of Present Illness 55 yo M admitted to the hospital for acute symptomatic anemia, weight loss >40lbs in 3 weeks and confusion. Reports a recent history of requiring oxygen at home, up to 6L of O2 by [place]. Patient's is unsure why specifically was on oxygen other than having increased trouble breathing. Prior to 3 weeks ago he was in full strength, able to work throughout the day without issue. For the past 3 weeks he has had no appetite, progressively lost weight, and had shortness of breath with exercise and at rest, and generalized fatigue. He attests to having a cough but denies any sputum production, and denies hemoptysis. Denies fevers, chills or night sweats but does note that instead of feeling chilly like usual, he required more fans and cooling due to feeling warmer than usual. Extensive smoking history; rolls his own cigarettes multiple times a day and smokes ~1 pack per day since he was 14. (40 pack years). Occasionally used chewing tobacco, minimal cigar use. Denies history of exposure to machinery, coal, sandblasting, exotic birds. does have multiple farm animals (cows,sheep) that he is around daily. No pets at home. notes that [address] Watts visited got bloodwork for him and his sodium was 118 and he had to get multiple bags of fluid in the office. Pt was acutely confused and not behaving appropriately at the time. Hospital course significant for profound symptomatic anemia at Hg 7, requiring 2 u pRBC transfusion. GI to perform EGD and Colonoscopy today. Allergies Allergy/AdvReac Type Severity Reaction Status Date / Time No Known Allergies Allergy Unverified 06/26/20 15:13 Home Medications Medication Instructions Recorded Confirmed Type Live Enzymes Tab 1 tab PO DAILY PRN 06/26/20 06/26/20 History Penicillin Tab 500 mg PO Q8 06/26/20 06/26/20 History albuterol sulfate 1 puff INHALATION Q4 PRN 06/26/20 06/26/20 History nystatin 5 ml PO QID 06/26/20 06/26/20 History prednisone 0 mg PO .QID UD 06/26/20 06/26/20 History Patient History Medical History Mandible fracture Surgical History No history of previous surgery Family History Mother Breast cancer Denies family history of Colorectal cancer Social History (Updated 06/28/20 @ 11:01 by Annamarie Walton MD) Smoking Status: Never smoker Age Started Using Tobacco: 14; Cigarettes Per Day: 1 ppd; Tobacco Cessation Education Requested by Patient: No Hx Alcohol Use: No Hx Substance Use: No Preferred Language: Nepalese Communication Ability: Effective Telecommunication Lines Repairer Required: No Beliefs That Will Affect Care: None and Cultural marital status: Current Living Situation: Family Current Living Situation Comment: Yobany with /children current occupation: [employer] How many Children do You have: 10 Assistive Devices: None Review of Systems Constitutional: + fatigue, + weakness, + anorexia and + weight loss; no fever, no chills and no sweats Respiratory: + cough; no pain on inspiration, no sputum production and no wheezing Cardiovascular: + lightheadedness; no chest pain, no palpitations and no edema Gastrointestinal: no nausea, no vomiting and no change in stools Neurologic: + generalized weakness and + confusion Physical Exam Physical Exam: VITAL SIGNS - Vital signs and nursing notes were reviewed. GENERAL - 55-year-old M, thin and tired appearing in bed, appears pale, not diaphoretic SKIN - Without rashes. HEAD - NC/AT. EARS - No deformities of external structures noted on gross examination bilaterally. MOUTH/OROPHARYNX - Without perioral cyanosis. NECK - Supple to palpation. No nuchal rigidity. LUNGS - Inspiratory wheeze throughout all lung vivas. No expiratory wheeze, mild rhonchorous breath sounds throughout. no focal changes. Breathing comfortably on room air. CARDIAC - RRR, No murmur, rubs, or gallops appreciated. ABDOMEN -soft nontender nondistended with normal bowel sounds. EXTREMITIES - No clubbing or peripheral cyanosis. No pretibial edema present. radial and dorsalis pedis pulses palpated bilaterally. NEUROLOGIC - No focal neurological deficits noted on exam. Results & Data Results & Data ([facility]) Vital Signs (Past 12 Hours) Vital Signs Temp Pulse Pulse Resp BP BP Pulse Ox 06/28/20 10:16 94 H 23 119/81 93 06/28/20 10:00 86 19 95 06/28/20 09:08 87 20 132/76 96 06/28/20 09:00 36.9 C 86 84 20 129/81 96 06/28/20 08:12 98 H 15 115/74 92 06/28/20 08:00 90 15 96 06/28/20 07:08 91 H 19 129/81 95 06/28/20 07:00 84 19 95 06/28/20 03:30 90 22 95 06/28/20 03:08 37 C 96 H 22 122/79 95 06/27/20 23:34 76 06/27/20 23:08 36.8 C 74 23 118/77 94 Pulse Ox 06/28/20 10:16 06/28/20 10:00 06/28/20 09:08 06/28/20 09:00 96 06/28/20 08:12 06/28/20 08:00 06/28/20 07:08 06/28/20 07:00 06/28/20 03:30 06/28/20 03:08 06/27/20 23:34 06/27/20 23:08 Laboratory Results WBC 14.32 K/uL (4.8-10.8) H 06/28/20 05:26 RBC 3.22 M/uL (4.7-6.1) L 06/28/20 05:26 Hgb 10.4 g/dL (14.0-18.0) L 06/28/20 05:26 Hct 31.7 % (42-52) L 06/28/20 05:26 MCV 98.4 fL (80-100) 06/28/20 05:26 MCH 32.3 pg (25-34) 06/28/20 05:26 MCHC 32.8 g/dL (32-36) 06/28/20 05:26 RDW Std Deviation 70.7 fL (36.4-46.3) H 06/28/20 05:26 RDW Coeff of Paige 20.1 % (11.5-14.5) H 06/28/20 05:26 Plt Count 415 K/uL (130-400) H 06/28/20 05:26 MPV 8.9 fL (7.4-10.4) 06/28/20 05:26 Immature Gran % (Auto) 0.3 % 06/28/20 05:26 Neut % (Auto) 88.8 % 06/28/20 05:26 Lymph % (Auto) 6.9 % 06/28/20 05:26 [place] % (Auto) 3.4 % 06/28/20 05:26 Eos % (Auto) 0.5 % 06/28/20 05:26 Baso % (Auto) 0.1 % 06/28/20 05:26 Neut # (Auto) 12.72 K/uL (1.4-6.5) H 06/28/20 05:26 Lymph # (Auto) 0.99 K/uL (1.2-3.4) L 06/28/20 05:26 [place] # (Auto) 0.48 K/uL (0.11-0.59) 06/28/20 05:26 Eos # (Auto) 0.07 K/uL (0-0.5) 06/28/20 05:26 Baso # (Auto) 0.01 K/uL (0-0.2) 06/28/20 05:26 Immature Gran # (Auto) 0.05 K/uL (0.00-0.02) H 06/28/20 05:26 Polychromasia 2+ 06/26/20 14:06 Anisocytosis Present 06/28/20 05:26 Echinocytes 1+ 06/28/20 05:26 PT 11.9 Seconds (9.0-12.0) 06/26/20 14:52 INR 1.1 (0.9-1.1) 06/26/20 14:52 APTT 25.2 Seconds (21.0-31.0) 06/26/20 14:52 PTT Ratio 0.9 06/26/20 14:52 Sodium 134 mmol/L (136-145) L 06/28/20 05:26 Potassium 3.8 mmol/L (3.5-5.1) 06/28/20 05:26 Chloride 102 mmol/L (98-107) 06/28/20 05:26 Carbon Dioxide 27 mmol/L (21-32) 06/28/20 05:26 Anion Gap 5.0 (3-11) 06/28/20 05:26 BUN 18 mg/dl (7-18) 06/28/20 05:26 Creatinine 0.43 mg/dl (0.6-1.4) L 06/28/20 05:26 Est Cr Clr Drug Dosing 159.2 ml/min 06/28/20 05:26 Est GFR ( Amer) 148.3 06/28/20 05:26 Est GFR (Non-Af Amer) 128.0 06/28/20 05:26 BUN/Creatinine Ratio 41.3 (10-20) H 06/28/20 05:26 Glucose 103 mg/dl (70-99) H 06/28/20 05:26 Calcium 7.6 mg/dl (8.5-10.1) L 06/28/20 05:26 Iron 54 mcg/dl (35-175) 06/26/20 14:06 Transferrin 167 mg/dl (200-360) L 06/26/20 14:06 Transferrin % Sat 23 % (20-50) 06/26/20 14:06 Ferritin 703.0 ng/ml (8-388) H 06/26/20 14:06 Total Bilirubin 0.7 mg/dl (0.2-1) 06/28/20 05:26 AST 27 U/L (15-37) 06/28/20 05:26 ALT 69 U/L (12-78) 06/28/20 05:26 Alkaline Phosphatase 84 U/L (45-117) 06/28/20 05:26 Ammonia 26.4 umol/L (11-32) 06/26/20 21:44 Troponin I < 0.015 ng/ml (0-0.045) 06/26/20 14:06 Total Protein 5.6 gm/dl (6.4-8.2) L 06/28/20 05:26 Albumin 2.1 gm/dl (3.4-5.0) L 06/28/20 05:26 Globulin 3.5 gm/dl (2.5-4.0) 06/28/20 05:26 Albumin/Globulin Ratio 0.6 (0.9-2) L 06/28/20 05:26 Lipase 267 U/L (73-393) 06/26/20 14:06 Vitamin B12 > 2000 pg/ml (193-986) H 06/26/20 21:44 Folate 12.60 ng/ml (>5.38) 06/26/20 21:44 TSH 2.400 uIu/ml (0.300-4.500) 06/27/20 05:46 Nasal Screen MRSA (PCR) Negative (Negative) 06/26/20 18:29 SARS-CoV-2 Ag (Rapid) Negative (Negative) 06/26/20 14:17 Blood Type A Positive 06/26/20 14:06 Blood Type Recheck A Positive 06/26/20 14:52 Antibody Screen NEGATIVE 06/26/20 14:06 Crossmatch See Detail 06/26/20 14:06 Resident Activity Tracking Resident Involvement: Resident Care Provided Care Provided: Adult Hospital Medicine
--- NOTE | 2020-06-28 13:55 | Hospitalist Progress Note ---
Date of Service June 28, 2020 Assessment & Plan (1) Leukocytosis: New on 06/28. No focal signs of infection, but did have to undergo bowel prep. Possibly reactive. - Monitor. (2) Symptomatic anemia: Macrocytic anemia in the setting of melena stool and fecal occult positivity. - Tx 2 units PRBCs. - Patient will have planned colonscopy and endoscopy today. - Appreciate input from GI. - Hgb is 10.4 today. (3) Melena: Given his extreme weight loss, severe protein calorie malnutrition, and severe failure to thrive the melena is concerning for GI occult malignancy. - As above. (4) Pulmonary emboli: This is a difficult situation as patient has likely malignancy evidence of pulmonary emboli but recent GI bleed. - Presently holding anticoagulation for procedure; can consider after procedure after pulmonary weighs in. (5) Pulmonary nodule 1 cm or greater in diameter: Highly concerning for primary lung cancer vs metastatic disease vs other. - Consulted pulm - Plan for outpatient PET CT and possible EBUS for a large lymph node. (6) Severe protein-calorie malnutrition: 40+ pounds of weight loss in 4-6 weeks. Profound weight loss leading to bed-bound status. - Occult malignancy is top of differential. (7) Thrombocytosis: Secondary to anemia vs. malignancy. - Monitor (8) DVT prophylaxis: SCDs - Chemical means contraindicated in setting of acute GI bleeding Admission and Anticipated Discharge Date Admission Date: June 26, 2020 Subjective No issues this morning. No pain. Reports no fevers/chills, chest pain, shortness of breath, abdominal pain, nausea, or vomiting. Physical Exam Constitutional: + well hydrated and + cachectic Eyes: EOM intact bilaterally; no conjunctival abnormality ENMT: external ear and nose normal, oropharynx normal Neck: trachea midline, no thyromegaly normal visual inspection Respiratory: normal respiratory effort, lungs clear to auscultation no respiratory distress Cardiovascular: RRR, no murmur, no edema Gastrointestinal (Abdomen): Inspection/Auscultation: abdomen normal to inspection; abdomen not distended Musculoskeletal: no cyanosis or clubbing, extremities motor strength 5/5 Skin: no rashes, warm and dry Neurologic: moves all extremities and awake Psychiatric: Orientation: alert, oriented to person and cooperative Results & Data Results & Data ([facility]) Vital Signs (Past 12 Hours) Vital Signs Temp Pulse Pulse Pulse Resp BP BP 12/03/20 13:41 36.8 C 94 H 18 130/81 06/28/20 13:00 87 20 06/28/20 12:08 90 17 123/77 06/28/20 12:00 90 22 06/28/20 11:11 89 19 122/80 06/28/20 11:10 90 22 06/28/20 10:17 96 H 20 06/28/20 10:16 94 H 23 119/81 06/28/20 10:00 86 19 06/28/20 09:08 87 20 132/76 06/28/20 09:00 36.9 C 86 84 20 129/81 06/28/20 08:12 98 H 15 115/74 06/28/20 08:00 90 15 06/28/20 07:08 91 H 19 129/81 06/28/20 07:00 84 19 06/28/20 03:30 90 22 06/28/20 03:08 37 C 96 H 22 122/79 Pulse Ox Pulse Ox 06/28/20 13:41 96 06/28/20 13:00 95 06/28/20 12:08 96 06/28/20 12:00 95 06/28/20 11:11 97 06/28/20 11:10 96 06/28/20 10:17 94 06/28/20 10:16 93 06/28/20 10:00 95 06/28/20 09:08 96 06/28/20 09:00 96 96 06/28/20 08:12 92 06/28/20 08:00 96 06/28/20 07:08 95 06/28/20 07:00 95 06/28/20 03:30 95 06/28/20 03:08 95 PG Care Time/CCT Total # of Minutes Spent Total Time Spent with Patient: Total time spent is greater than 50% in coordination of care (as documented) at patient's floor/unit and/or counseling patient: Coding Level of Care Code 27897 Subseq Hosp Care Lvl 3 Diagnoses Leukocytosis D72.829 Symptomatic anemia D64.9 Melena K92.1 Pulmonary emboli I26.99 Pulmonary nodule 1 cm or greater in diameter R91.1 Severe protein-calorie malnutrition E43 Thrombocytosis D47.3 DVT prophylaxis Z29.9
--- NOTE | 2020-06-28 14:18 | Anesthesiology Consultation ---
Date of Service June 28, 2020 Assessment & Plan Chart Review Chart Review: Acceptable Risk for Surgery Consults Requested none History Surgery Operation Date: 06/28/20 16:00 Proposed Procedures p Colonoscopy EGD Dr. Curry Zapien, Height/Weight Height: 5 ft 10 in Weight: 59.4 kg Allergies Allergy/AdvReac Type Severity Reaction Status Date / Time No Known Allergies Allergy Unverified 06/26/20 15:13 Medications Home Medications Medication Instructions Recorded Confirmed Last Taken Live Enzymes Tab 1 tab PO DAILY PRN 06/26/20 06/26/20 Unknown Penicillin Tab 500 mg PO Q8 06/26/20 06/26/20 06/26/20 06:30 albuterol sulfate 1 puff INHALATION Q4 PRN 06/26/20 06/26/20 Unknown nystatin 5 ml PO QID 06/26/20 06/26/20 06/26/20 12:00 prednisone 0 mg PO .QID UD 06/26/20 06/26/20 Unknown Active Medications Generic Name Dose Route Start Last Admin Trade Name Freq PRN Reason Stop Dose Admin Pantoprazole Sodium 40 mg/ 100 mls @ 20 mls/hr 06/26/20 14:30 06/28/20 12:23 Dextrose IV 07/26/20 14:29 8 mg/hr Q5H CITLALI 20 mls/hr Administration 8 MG/HR Potassium Chloride/Dextrose/Sod Cl 20 meq in 1,000 mls @ 80 mls/hr 06/26/20 18:30 06/28/20 08:36 D5nss + 20meq Kcl IV 07/26/20 18:29 80 mls/hr .[id number] CITLALI Administration Nystatin 5 ml 06/26/20 18:30 06/28/20 13:41 Nystatin Susp 500,000 U/5 Ml Udc PO 07/06/20 18:29 Not Given QID CITLALI NPO Date Last Intake of Fluids: 06/28/20 Time Last Intake of Fluids: 09:00 Date Last Intake of Solids: 06/26/20 Past Medical History Medical History Mandible fracture Past Family History Family History Mother Breast cancer Denies family history of Colorectal cancer Past Surgical History Surgical History No history of previous surgery Social History Smoking Status: Never smoker tobacco type: cigarettes Smoking cigarettes per day: 1 ppd Hx Alcohol Use: No Alcohol Intake Frequency Comment: no alcohol in last 3 weeks Hx Substance Use: No Physical Exam Vital Signs Last Vital Signs Temp 36.8 C 06/28/20 13:41 Pulse 94 H 06/28/20 13:41 Resp 18 06/28/20 13:41 BP 130/81 06/28/20 13:41 Pulse Ox 96 06/28/20 13:41 Testing Laboratory Results 06/28/20 05:26 06/28/20 05:26 PT 11.9 Seconds (9.0-12.0) 06/26/20 14:52 INR 1.1 (0.9-1.1) 06/26/20 14:52 APTT 25.2 Seconds (21.0-31.0) 06/26/20 14:52 Blood Type A Positive 06/26/20 14:06 Antibody Screen NEGATIVE 06/26/20 14:06
[2020-06-28] MEDS ORDERED: PROPOFOL IV EMULSION 10 MG/ML 20 ML VIAL IV ONE (14:26)
[2020-06-28] MEDS ORDERED: KETAMINE 50 MG/5 ML SYRINGE ONE (14:26)
[2020-06-28] MEDS ORDERED: LIDOCAINE HCL 2% 2 ML VIAL/AMP(20MG/ML) INFIL ONE (14:26)
--- NOTE | 2020-06-28 15:10 | GI REPORT ---
Patient Name: Anthony Buckner Procedure Date: 06/28/2020 2:05 PM Date of : 1965 Admit Type: Inpatient Age: 55 Gender: Male Attending MD: Gopi Zapien DO Procedure: Colonoscopy Providers: Gopi Zapien DO Referring MD: Gilberto Lopez Md Indications: Melena, Acute post hemorrhagic anemia Medicines: Monitored Anesthesia Care Complications: No immediate complications. Estimated Blood Loss: Estimated blood loss: none. Procedure: Pre-Anesthesia Assessment: - Prior to the procedure, a History and Physical was performed, and patient medications and allergies were reviewed. The patient's tolerance of previous anesthesia was also reviewed. The risks and benefits of the procedure and the sedation options and risks were discussed with the patient. All questions were answered, and informed consent was obtained. Prior Anticoagulants: The patient has taken no previous anticoagulant or antiplatelet agents. ASA Grade Assessment: III - A patient with severe systemic disease. After reviewing the risks and benefits, the patient was deemed in satisfactory condition to undergo the procedure. After I obtained informed consent, the scope was passed under direct vision. Throughout the procedure, the patient's blood pressure, pulse, and oxygen saturations were monitored continuously. The Colonoscope was introduced through the anus and advanced to the terminal ileum. The colonoscopy was performed without difficulty. The patient tolerated the procedure well. The quality of the bowel preparation was good. The terminal ileum, ileocecal valve, appendiceal orifice, and rectum were photographed. Findings: The perianal and digital rectal examinations were normal. Non-bleeding internal hemorrhoids were found during retroflexion. The hemorrhoids were small. Fluid aspiration for cell count and differential, bacterial cultures and Clostridium difficile was performed in the entire colon. Impression: - Non-bleeding internal hemorrhoids. - Fluid aspiration was performed. Recommendation: - Return patient to [facility] for ongoing care. - Advance diet as tolerated. - No evidence of mass or inflammation Gopi Zapien DO 06/28/2020 3:09:30 PM This report has been signed electronically. Note Initiated On: 06/28/2020 2:05 PM Number of Addenda: 0 I attest to the content of the Intraoperative Record and orders documented therein, exceptions below {[id number]}
--- NOTE | 2020-06-28 15:15 | GI REPORT ---
Patient Name: Anthony Buckner Procedure Date: 06/28/2020 2:07 PM Date of : 1965 Admit Type: Inpatient Age: 55 Gender: Male Attending MD: Gopi Zapien DO Procedure: Upper GI endoscopy Providers: Gopi Zapien DO Referring MD: Gilberto Lopez Md Indications: Melena Medicines: Monitored Anesthesia Care Complications: No immediate complications. Estimated Blood Loss: Estimated blood loss: none. Procedure: Pre-Anesthesia Assessment: - Prior to the procedure, a History and Physical was performed, and patient medications and allergies were reviewed. The patient's tolerance of previous anesthesia was also reviewed. The risks and benefits of the procedure and the sedation options and risks were discussed with the patient. All questions were answered, and informed consent was obtained. Prior Anticoagulants: The patient has taken no previous anticoagulant or antiplatelet agents. ASA Grade Assessment: III - A patient with severe systemic disease. After reviewing the risks and benefits, the patient was deemed in satisfactory condition to undergo the procedure. After obtaining informed consent, the endoscope was passed under direct vision. Throughout the procedure, the patient's blood pressure, pulse, and oxygen saturations were monitored continuously. The Colonoscope was introduced through the mouth, and advanced to the third part of duodenum. The upper GI endoscopy was accomplished without difficulty. The patient tolerated the procedure well. Findings: Severe esophagitis with bleeding was found. Biopsies were taken with a cold forceps for histology. A small hiatal hernia was present. Few non-bleeding cratered gastric ulcers with no stigmata of bleeding were found in the gastric antrum. The largest lesion was 5 mm in largest dimension. Biopsies were taken with a cold forceps for histology. The examined duodenum was normal. Impression: - Severe erosive esophagitis. Biopsied. - Small hiatal hernia. - Non-bleeding gastric ulcers with no stigmata of bleeding. Biopsied. - Normal examined duodenum. Recommendation: - Return patient to [facility] for ongoing care. - Use Protonix (pantoprazole) 40 mg PO BID. - Advance diet as tolerated. - Await pathology results. Gopi Zapien DO 06/28/2020 3:14:53 PM This report has been signed electronically. Note Initiated On: 06/28/2020 2:07 PM Number of Addenda: 0 I attest to the content of the Intraoperative Record and orders documented therein, exceptions below {[id number]}
--- NOTE | 2020-06-28 15:38 | Anesthesiology Progress Note ---
Date of Service June 28, 2020 Anesthesia Post Procedure Vital Signs Vital Signs: Temp Pulse Pulse Pulse Resp BP BP 06/28/20 15:28 93 H 16 120/72 06/28/20 15:13 90 16 107/74 06/28/20 13:41 36.8 C 94 H 18 130/81 06/28/20 13:00 87 20 06/28/20 12:08 90 17 123/77 06/28/20 12:00 90 22 06/28/20 11:11 89 19 122/80 06/28/20 11:10 90 22 06/28/20 10:17 96 H 20 06/28/20 10:16 94 H 23 119/81 06/28/20 10:00 86 19 06/28/20 09:08 87 20 132/76 06/28/20 09:00 36.9 C 86 84 20 129/81 06/28/20 08:12 98 H 15 115/74 06/28/20 08:00 90 15 06/28/20 07:08 91 H 19 129/81 06/28/20 07:00 84 19 06/28/20 03:30 90 22 06/28/20 03:08 37 C 96 H 22 122/79 06/27/20 23:34 76 06/27/20 23:08 36.8 C 74 23 118/77 06/27/20 21:08 79 22 124/71 06/27/20 20:07 36.9 C 82 19 121/77 06/27/20 20:00 83 20 06/27/20 19:08 83 17 121/75 06/27/20 17:07 79 15 113/72 06/27/20 16:07 84 17 121/76 06/27/20 15:54 82 Pulse Ox Pulse Ox 06/28/20 15:28 95 06/28/20 15:13 97 06/28/20 13:41 96 06/28/20 13:00 95 06/28/20 12:08 96 06/28/20 12:00 95 06/28/20 11:11 97 06/28/20 11:10 96 06/28/20 10:17 94 06/28/20 10:16 93 06/28/20 10:00 95 06/28/20 09:08 96 06/28/20 09:00 96 96 06/28/20 08:12 92 12/03/20 08:00 96 06/28/20 07:08 95 06/28/20 07:00 95 06/28/20 03:30 95 06/28/20 03:08 95 06/27/20 23:34 06/27/20 23:08 94 06/27/20 21:08 96 06/27/20 20:07 95 06/27/20 20:00 96 06/27/20 19:08 96 06/27/20 17:07 94 06/27/20 16:07 94 06/27/20 15:54 Transfer of Care Handoff Completed per policy Notes Mental Status: alert / awake / arousable and participated in evaluation Patient Amnestic to Procedure: Yes Nausea / Vomiting: adequately controlled Pain: adequately controlled Airway Patency, RR, SpO2: stable & adequate BP & HR: stable & adequate Hydration State: stable & adequate Anesthetic Complications: no major complications apparent
--- NOTE | 2020-06-28 16:36 | Billing Data ---
Date of Service June 28, 2020 Coding Level of Care Code 97555 Inpt Consult Level 5
[2020-06-28] MEDS: PANTOprazole 40 MG in SYRINGE 0 ML IV SCH (22:03)
[2020-06-29 05:23] LABS: Hematocrit (blood only) 29.1 % (42-52); Hemoglobin 9.4 g/dL (14.0-18.0); Mean Corpuscular Hemoglobin 32.1 pg (25-34); Mean Corpuscular Hgb Conc 32.3 g/dL (32-36); Mean Corpuscular Volume 99.3 fL (80-100); Mean Platelet Volume 8.9 fL (7.4-10.4); Platelet Count 304 K/uL (130-400); RDW Coefficient of Variation 19.7 % (11.5-14.5); RDW Standard Deviation 69.4 fL (36.4-46.3); Red Blood Count 2.93 M/uL (4.7-6.1); White Blood Count 6.48 K/uL (4.8-10.8)
[2020-06-29 05:48] LABS: BUN Creatinine Ratio 41.5 (10-20); Blood Urea Nitrogen 13 mg/dl (7-18); Calcium 7.2 mg/dl (8.5-10.1); Carbon Dioxide 26 mmol/L (21-32); Chloride 105 mmol/L (98-107); Creatinine Clr Calc Pharmacy 212.5 ml/min; Est GFR (African American) > 150.0; Est GFR (Non-African American) 144.5; Glucose 94 mg/dl (70-99); Magnesium 1.6 mg/dl (1.8-2.4); Potassium 3.6 mmol/L (3.5-5.1); Sodium 135 mmol/L (136-145)
[2020-06-29 05:49] LABS: Phosphorus 2.4 mg/dl (2.5-4.9)
[2020-06-29] MEDS: D5NSS + 20MEQ KCL 20 MEQ/1,000 ML BAG IV SCH (09:15)
[2020-06-29] MEDS: PANTOprazole 40 MG in SYRINGE 0 ML IV SCH (09:15)
[2020-06-29] MEDS: NYSTATIN SUSP 500,000 U/5 ML UDC PO SCH ×2 (09:15→14:01)
[2020-06-29] MEDS ORDERED: POTASSIUM PHOS 3 MMOL/1 ML INFUSION IV STA (11:26)
[2020-06-29] MEDS ORDERED: IRON SUCROSE 300 MG in SODIUM CHLORIDE 0.9% 250 ML IV STA (11:32)
[2020-06-29] MEDS ORDERED: MAGNESIUM SULFATE / D5W 1 GM/100 ML BAG IV ONE (11:45)
[2020-06-29] MEDS ORDERED: POTASSIUM PHOSPHATE 15 MMOL in SODIUM CHLORIDE 0.9% 250 ML IV ONE (12:00)
[2020-06-29] MEDS ORDERED: POT PHOSPHATE MONOBASIC W/ SOD TAB PO SCH (13:00)
--- NOTE | 2020-06-29 15:56 | Discharge Summary ---
Date of Service June 29, 2020 Admission HPI Per Admitting Provider 55yo male with no known PMH presents with 1 month of feeling unwell. Patient's was at bedside and provided most of the history as patient was confused and could not remember most historical details. About 1 month ago the patient was seen at a local urgent care for his symptoms. At that time he had cough, fatigue, ?fever, and poor appetite. Was placed on antibiotics and steroids for presumed pneumonia. He was tested for COVID and apparently this was negative. He was also told he may have thrush and was placed on nystatin. Despite the above steroids & antibiotics he never felt better. Cough has pers isted, fatigue has persisted, etc. Has lost a considerable amount of weight over the last 2 months. Amount is about 35-40 pounds. Has had severe anorexia, early satiety, extreme fatigue, and dark black stools. The latter symptom was first seen last week. The dark stools was associated with constipation which is chronic per his . No abdominal pain. Has had subjective fevers and chills. mentioned one temperature of about 100 degrees. Mr Buckner has also been confused. specifically mentions him having confusion last weekend. He admits to "not having his memory recently". Could not tell me the day of the week during my assessment. 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 For the last week he has essentially been in the bed. Principal Diagnosis Gastric ulcers Pulmonary embolism Pulmonary nodules Discharge Exam Constitutional + well hydrated and + cachectic Eyes EOM intact bilaterally; no conjunctival abnormality ENMT external ear and nose normal, oropharynx normal Neck trachea midline, no thyromegaly normal visual inspection Respiratory normal respiratory effort, lungs clear to auscultation no respiratory distress Cardiovascular RRR, no murmur, no edema Gastrointestinal (Abdomen) Inspection/Auscultation: abdomen normal to inspection; abdomen not distended Musculoskeletal no cyanosis or clubbing, extremities motor strength 5/5 Skin no rashes, warm and dry Neurologic moves all extremities and awake Psychiatric Orientation: alert, oriented to person and cooperative Discharge Data Allergies Allergy/AdvReac Type Severity Reaction Status Date / Time No Known Allergies Allergy Unverified 06/26/20 15:13 Consultations 06/26/20 14:41 ED Decision to Admit Stat 06/26/20 18:10 Consult Gastroenterology Routine 06/27/20 22:16 Consult Pulmonology Routine Procedures Performed Operation Date: 06/28/20 16:00 Actual Procedures p EGD Biopsy Cytology - Gopi Smart Case, DO s Colonoscopy - Gopi Smart Case, DO Ordered Studies 06/27/20 06:30 CT abd pelvis IV con only Routine CT angio chest PE protocol Routine Hospital Course (1) Gastric ulcer: Seen on EGD on 06/28. - PPI PO BID & carafate QID x 10 days - GI follow up in 2 weeks. - I did speak with GI. They gave approval to start anticoagulation. (2) Symptomatic anemia: Macrocytic anemia in the setting of melena stool and fecal occult positivity. - Tx 2 units PRBCs. - Patient with colonoscopy and endoscopy on 06/28 showed gastric ulcers without stigmata of recent bleeding. - Appreciate input from GI. - Hgb is 9.4 today. Given his bleeding, I did give IV iron x 1 dose. - Patient and family very much wanted him to come home. He was encouraged to follow up closely with physicians. (3) Melena: - As above. (4) Pulmonary emboli: This is a difficult situation as patient has likely malignancy evidence of pulmonary emboli but recent GI bleed. - Discussed with pulm and GI. Started Eliquis on discharge with coupon given to the patient. (5) Pulmonary nodule 1 cm or greater in diameter: Highly concerning for primary lung cancer vs metastatic disease. - Consulted pulm - Plan for outpatient PET CT and possible EBUS for a large lymph node. - Reinforced to the patient the importance of close follow up before he was discharged. (6) Severe protein-calorie malnutrition: 40+ pounds of weight loss in 4-6 weeks. Profound weight loss leading to bed-bound status. - Occult malignancy is top of differential. (7) Thrombocytosis: Secondary to anemia vs. malignancy. - Monitor (8) DVT prophylaxis: SCDs - Total Time Total Time Spent Total Time Spent (In Minutes): 35 Discharge Plan Discharge Items Patient Disposition: Home - Self-Care Reason For Visit: SEVERE MALNUTRITION, WEIGHT LOSS 40#, MELENA STOOL Discharge Diagnosis: Stomach ulcers, pulmonary nodules, blood clot in lungs Condition on Discharge: Fair Activity: Resume your previous activity Non-emergency contact: Primary Care Provider, Tax Collector and Pump Erector Call non-emergency contact if: your symptoms worsen and your pain is worsening Follow-up/Referrals: Gopi Zapien DO [Physician] - 07/12/20 11:00 am (Dr. Zapien is unavailable. Please follow up with Gladis Pulido PA-C on 07/12/2020 at 11:00 am. Please arrive to the office 15 minutes early for your appointment. If you are unable to keep this appointment, please call the office to reschedule at [phone].) Yaron Johnson MD [Physician] - 07/31/20 11:00 am (Dr. Johnson is unavailable. Please follow up with Silver Qiu PA-C on Thursday07/31/2020 at 11:00 am. Please arrive to the office 15 minutes early for your appointment. If you are unable to keep this appointment, please call the office to reschedule at [phone].) Johana Pruitt MD [Primary Care Provider] - Diet: Regular Addtl Attending Provider Instructions: You were admitted for weight loss. We found stomach ulcers on a procedure to look at your stomach. You will need to take pantoprazole 2 times per day for at least the next month. Please take the carafate for the next 10 days. Please follow up with the GI doctors. Please do NOT take aspirin, ibuprofen, Motrin, Aleve, naproxen, or any other NSAID for pain as this can worsen your ulcers. Please also DO NOT take Pepto- Bismol as it contains aspirin which can also cause ulcers in your stomach. Please take acetaminophen for pain within the bottle recommendations. We found a blood clot in your lungs, and we are starting you on a blood thinner to help make the blood clots dissolve. Please follow up with Dr. Johnson in the clinic to follow up on your pulmonary nodules. These need further testing to be sure they are not cancer. Pending Studies at Discharge: No Stand-Alone Forms: My [employer], Smoking Cessation Medications and DC Order Prescriptions: New pantoprazole 40 mg tablet,delayed release (DR/EC) 40 mg PO BID Qty: 60 RF: 0 sucralfate [Carafate] 1 gram tablet 1 g PO ACHS Qty: 40 RF: 0 Eliquis 5 mg (74 tabs) tablets,dose pack See Rx Instructions .ROUTE .COMPLEX Qty: 74 RF: 0 Continued nystatin 100,000 unit/mL Suspension 5 ml PO QID RF: 0 albuterol sulfate 90 mcg/actuation Hfa Aerosol Inhaler 1 puff INHALATION Q4 PRN (Reason: Shortness Of Breath Or Wheezing) RF: 0 Discontinued prednisone 10 mg Tablet 0 mg PO .QID UD RF: 0 Live Enzymes Tab 1 tab PO DAILY PRN (Reason: ..) RF: 0 Penicillin Tab 500 mg PO Q8 RF: 0 Discharge Orders: Discharge Order (Routine); Ordered 06/29/20 Ordered By: Gilberto Lopez Admission Data Admit Date/Time: 06/26/20 16:47 Attending Provider: Gilberto Lopez Admit Provider: Alex Alvarado Primary Care Provider: Johana Pruitt Other Providers: Alex Alvarado ; Gopi Zapien ; Yaron Johnson Other Interventions: Discharge Summary Assessment (RN) Last Done: 06/29/20 14:49 Coding Level of Care Code D/C Day Management >30 mins Diagnoses Gastric ulcer K25.9 Symptomatic anemia D64.9 Melena K92.1 Pulmonary emboli I26.99 Pulmonary nodule 1 cm or greater in diameter R91.1 Severe protein-calorie malnutrition E43 Thrombocytosis D47.3 DVT prophylaxis Z29.9
[2020-06-29] MEDS ORDERED: SUCRALFATE 1 GM/10 ML UDC PO SCH (17:00)
--- NOTE | 2020-07-06 10:03 | Coding Query ---
To promote full compliance with coding requirements relating to patient care, provider participation is requested in all cases of collections professional uncertainty. Please assist us with the question(s) below: Coding Question(s): The diagnosis(es) below was documented in the EGD and Colonoscopy, then subsequently fell off all further documentation. Please indicate if it is still a possible diagnosis or ruled out. Physician's Response(s): "SEVERE ESOPHAGITIS WITH BLEEDING WAS FOUND" (documented on EGD) ( x ) Diagnosed and POA ( ) Diagnosed and not POA ( ) Ruled out ( ) Other (please specify) ACUTE POST HEMORRHAGIC ANEMIA (documented on Colonoscopy) ( ) Diagnosed and POA ( ) Diagnosed and not POA ( x ) Ruled out ( ) Other (please specify) MTDD
== END 2020-06-29 16:40 | disposition home or self-care (01) | DRG 368 ==
LOC: ED 13:34 → SUATTDRO 16:47 → 1E 17:50